=== PATIENT | male | born 1985 | race Caucasian/White ===

== ENCOUNTER 2024-03-07 15:31 | Emergency (ER) | payer OTHER ==
[2024-03-07 16:12] VITALS: RESP 18
[2024-03-07 16:12] LABS: Basophils # (A) 0.1 k/uL (0-0.2); Basophils % (A) 1 %; Eosinophils # (A) 0.3 k/uL (0-0.7); Eosinophils % (A) 2 %; HCT 43.2 % (39.0-53.0); HGB 13.5 gm/dL (13.0-17.5); Lymphocytes # (A) 1.9 k/uL (1.0-4.8); Lymphocytes % (A) 16 %; MCH 29.2 pg (25.0-35.0); MCHC 31.3 g/dL (31.0-37.0); MCV 93.1 fL (80.0-100.0); Mean Platelet Volume 7.3; Monocytes # (A) 0.6 k/uL (0-1.0); Monocytes % (A) 5 %; Neutrophils # (A) 8.8 k/uL (1.3-7.7); Neutrophils % (A) 74 %; Platelet Count 288 k/uL (150-450); RBC 4.63 m/uL (4.30-5.90); WBC 11.9 k/uL (3.8-10.6)
[2024-03-07] MEDS: IPRATROPIUM-ALBUTEROL 3 ML NEB INHALATION STA (16:15)
--- NOTE | 2024-03-07 16:20 | XR ---
EXAMINATION TYPE: XR chest 2V DATE OF EXAM: 03/07/2024 COMPARISON: NONE HISTORY: Cough TECHNIQUE: Frontal and lateral views of the chest are obtained. FINDINGS: There is no focal air space opacity, pleural effusion, or pneumothorax seen. The cardiac silhouette size is within normal limits. The osseous structures are intact. IMPRESSION: No acute cardiopulmonary process.
[2024-03-07 16:24] LABS: African American GFR (CKD) >90 (>60 ml/min/1.73 sqM); Anion Gap 5 mmol/L; Blood Urea Nitrogen 17 mg/dL (9-20); Calcium 9.3 mg/dL (8.4-10.2); Carbon Dioxide 31 mmol/L (22-30); Chloride 103 mmol/L (98-107); Glucose 83 mg/dL (74-99); Non-African American GFR(CKD) >90 (>60 ml/min/1.73 sqM); Potassium 4.8 mmol/L (3.5-5.1); Sodium 139 mmol/L (137-145)
--- NOTE | 2024-03-07 16:26 | ED ---
General Adult HPI - General Chief complaint: Upper Respiratory Infection Stated complaint: rib pain Time Seen by Provider: 03/07/24 15:33 Source: patient, EMS, RN notes reviewed, old records reviewed Mode of arrival: EMS Limitations: no limitations - History of Present Illness Initial comments: Patient is a 38-year-old male who was sent from [facility] for evaluation for upper respiratory illness. Patient for the last 2 days has had a productive cough with darker sputum. Has some left lower lateral rib pain worse with coughing. Does have a smoking history. Has a history of cocaine use as well. Denies any recent drug use in the last few days. Denies any fevers or chills. Does endorse congestion. No nausea or vomiting or diarrhea. Presents for further evaluation at this time. - Related Data Previous Rx's Medication Instructions Recorded Albuterol Inhaler [Ventolin Hfa 2 puff INHALATION QID PRN #8 gm 03/07/24 Inhaler] Azithromycin [Zithromax] 250 mg PO DAILY 4 Days #4 tab 03/07/24 Ibuprofen [Motrin] 400 mg PO Q6HR PRN #56 tab 03/07/24 predniSONE [Deltasone] 40 mg PO DAILY 5 Days #10 tab 03/07/24 Allergies Allergy/AdvReac Type Severity Reaction Status Date / Time No Known Allergies Allergy Verified 03/07/24 15:46 Review of Systems ROS Statement: Those systems with pertinent positive or pertinent negative responses have been documented in the HPI. Review of Systems: CONST: Denies fever EYES: Denies blurry vision ENT: Endorses congestion C/V: Denies Chest pain RESP: Endorses cough GI: Denies abdominal pain : Denies dysuria SKIN: Denies rash. MSK: Endorses rib pain NEURO: Denies headache ROS Other: All systems not noted in ROS Statement are negative. Past Medical History History of Any Multi-Drug Resistant Organisms: MRSA Past Surgical History: Orthopedic Surgery Additional Past Surgical History / Comment(s): rt rotator cuff repair Past Psychological History: ADD/ADHD, Anxiety Smoking Status: Current every day smoker Past Alcohol Use History: None Reported Past Drug Use History: Cocaine, Heroin General Exam - General Exam Comments Initial Comments: General: Appears in no acute distress. HEAD: Normal with no signs of head trauma. EYES: PERRLA, EOMI, conjunctiva normal, no discharge. ENT: Hearing grossly intact, normal oropharynx. RESPIRATORY: Mild end expiratory wheezing with mild coarse breath sounds. No hypoxia. No increased work of breathing. C/V: Regular rate and rhythm. S1 and S2 auscultated, no edema, peripheral pulses 2+ and intact throughout ABD: Abd is soft, nontender, nondistended EXT: Normal range of motion, no obvious deformity. Patient does have some left inferior most rib tenderness to palpation in the mid axillary line. SKIN: No rashes or lesions observed on exposed skin. NEURO: Alert and oriented x 4 Limitations: no limitations Course Vital Signs 03/07/24 03/07/24 03/07/24 15:32 16:17 16:24 Temperature 98.3 F Pulse Rate 88 88 90 Respiratory 18 Rate Blood Pressure 142/84 O2 Sat by Pulse 99 Oximetry 03/07/24 18:24 Temperature 97.9 F Pulse Rate 82 Respiratory 18 Rate Blood Pressure 155/78 O2 Sat by Pulse 98 Oximetry Medical Decision Making - Medical Decision Making Was pt. sent in by a medical professional or institution (, PA, MACHINE ASSEMBLER, urgent care, hospital, or care home...) When possible be specific @ -No Did you speak to anyone other than the patient for history (EMS, parent, family, police, friend...)? What history was obtained from this source @ -No Did you review nursing and triage notes (agree or disagree)? Why? @ -I reviewed and agree with nursing and triage notes Were old charts reviewed (outside hosp., previous admission, EMS record, old EKG, old radiological studies, urgent care reports/EKG's, care home records)? Report findings @ -Old charts reviewed Differential Diagnosis (chest pain, altered mental status, abdominal pain women, abdominal pain men, vaginal bleeding, weakness, fever, dyspnea, syncope, headache, dizziness, GI bleed, back pain, seizure, CVA, palpatations, mental health, musculoskeletal)? @ -COVID, flu, RSV, pneumonia. This list is not all inclusive. EKG interpreted by me (3pts min.). @ -As above X-rays interpreted by me (1pt min.). @ -Chest x-ray reveals no obvious acute cardiopulmonary process. CT interpreted by me (1pt min.). @ -None done U/S interpreted by me (1pt. min.). @ -None done What testing was considered but not performed or refused? (CT, X-rays, U/S, labs)? Why? @ -None What meds were considered but not given or refused? Why? @ -None Did you discuss the management of the patient with other professionals (professionals i.e. , PA, MACHINE ASSEMBLER, lab, RT, psych nurse, social media project manager, steel fabricator, teacher, dairy quality assurance officer, shelter case manager)? Give summary @ -No Was smoking cessation discussed for >3mins.? @ -No Was critical care preformed (if so, how long)? @ -No Were there social determinants of health that impacted care today? How? (Homelessness, low income, unemployed, alcoholism, drug addiction, transportat ion, low edu. Level, literacy, decrease access to med. care, longterm, rehab)? @ -No Was there de-escalation of care discussed even if they declined (Discuss DNR or withdrawal of care, Hospice)? DNR status @ -No What co-morbidities impacted this encounter? (DM, HTN, Smoking, COPD, CAD, Cancer, CVA, ARF, Chemo, Hep., AIDS, mental health diagnosis, sleep apnea, morbid obesity)? @ -Tobacco use, polysubstance use Was patient admitted / discharged? Hospital course, mention meds given and route, prescriptions, significant lab abnormalities, going to OR and other pertinent info. @ -Patient presents from rehab facility for cough, congestion, likely mild COPD exacerbation. Patient also has suspected muscle strain of the left-sided ribs. We will obtain screening EKG as well as infectious labs and basic labs as well as chest x-ray. Patient was in agreement this plan. Vital signs within acceptable limits. Patient will be given IV steroids, breathing treatment, Toradol as well as a lidocaine patch. EKG shows no signs of acute ischemia. X-ray reveals no evidence of acute cardiopulmonary process.Patient's laboratory studies unremarkable. Viral swabs negative. On reevaluation, patient is feeling improved. Discussed his results and patient will be treated for likely COPD as well as bronchitis. He was in agreement this plan. He will be given a dose of azithromycin prior to discharge. I will provide the patient with a prescription for ibuprofen, albuterol inhaler, azithromycin, prednisone. I instructed the patient to follow up with their PCP in the next 1-3 days. I explained that the patient should return to the emergency department if they experience any worsening symptoms. Strict return precautions were discussed with the patient. The patient expressed understanding of these instructions. I answered all questions that the patient had. The patient was discharged home in good condition with their prescriptions and follow up information. Undiagnosed new problem with uncertain prognosis? @ -No Drug Therapy requiring intensive monitoring for toxicity (Heparin, Nitro, Ins ulin, Cardizem)? @ -No Were any procedures done? @ -No Diagnosis/symptom? @ -Tracheobronchitis Acute, or Chronic, or Acute on Chronic? @ -Acute Uncomplicated (without systemic symptoms) or Complicated (systemic symptoms)? @ -Complicated Side effects of treatment? @ -None Exacerbation, Progression, or Severe Exacerbation] @ -No Poses a threat to life or bodily function? @ -Unlikely - Lab Data Result diagrams: 03/07/24 15:57 03/07/24 15:57 Lab Results 03/07/24 03/07/24 03/07/24 Range/Units 15:57 15:57 15:57 WBC 11.9 H (3.8-10.6) k/uL RBC 4.63 (4.30-5.90) m/uL Hgb 13.5 (13.0-17.5) gm/dL Hct 43.2 (39.0-53.0) % MCV 93.1 (80.0-100.0) fL MCH 29.2 (25.0-35.0) pg MCHC 31.3 (31.0-37.0) g/dL RDW 13.0 (11.5-15.5) % Plt Count 288 (150-450) k/uL MPV 7.3 Neutrophils % 74 % Lymphocytes % 16 % Monocytes % 5 % Eosinophils % 2 % Basophils % 1 % Neutrophils # 8.8 H (1.3-7.7) k/uL Lymphocytes # 1.9 (1.0-4.8) k/uL Monocytes # 0.6 (0-1.0) k/uL Eosinophils # 0.3 (0-0.7) k/uL Basophils # 0.1 (0-0.2) k/uL Sodium 139 (137-145) mmol/L Potassium 4.8 (3.5-5.1) mmol/L Chloride 103 (98-107) mmol/L Carbon Dioxide 31 H (22-30) mmol/L Anion Gap 5 mmol/L BUN 17 (9-20) mg/dL Creatinine 0.66 (0.66-1.25) mg/dL Est GFR (CKD-EPI)AfAm >90 (>60 ml/min/1.73 sqM) Est GFR (CKD-EPI)NonAf >90 (>60 ml/min/1.73 sqM) Glucose 83 (74-99) mg/dL Calcium 9.3 (8.4-10.2) mg/dL Influenza Type A (PCR) Not Detected (Not Detectd) Influenza Type B (PCR) Not Detected (Not Detectd) RSV (PCR) Not Detected (Not Detectd) SARS-CoV-2 (PCR) Not Detected (Not Detectd) - EKG Data -: EKG Interpreted by Me EKG Comments: 12-lead Electrocardiogram Interpretation Note EKG was reviewed and interpreted by myself. 12-lead ECG performed at 1543 is interpreted by me as revealing normal sinus rhythm at a rate of 74 beats per m inute. [place] is normal. [place] interval is 143 ms, QRS duration is 86 ms, QTc is 406 ms.. There were no ST or T wave abnormalities to suggest myocardial ischemia or injury. R wave progression across the precordium was satisfactory. By my interpretation this EKG is non-diagnostic for acute ischemia. Disposition Clinical Impression: Tracheobronchitis Disposition: HOME SELF-CARE Condition: Good Instructions (If sedation given, give patient instructions): Acute Bronchitis (ED) Prescriptions: predniSONE [Deltasone] 40 mg PO DAILY 5 Days #10 tab Ibuprofen [Motrin] 400 mg PO Q6HR PRN #56 tab PRN Reason: Pain Albuterol Inhaler [Ventolin Hfa Inhaler] 2 puff INHALATION QID PRN #8 gm PRN Reason: Dyspnea Azithromycin [Zithromax] 250 mg PO DAILY 4 Days #4 tab Is patient prescribed a controlled substance at d/c from ED?: No Referrals: None,Stated [Primary Care Provider] - 1-2 days Forms: Area PCPs Time of Disposition: 17:11
[2024-03-07] MEDS: KETOROLAC 15 MG/ML 1 ML VIAL IVP STA (16:56)
[2024-03-07] MEDS: methylPREDNISolone SOD SUCCI 125 MG/2 ML VIAL IV STA (16:57)
[2024-03-07] MEDS: LIDOCAINE 4% PATCH TOPICAL ONE (16:57)
[2024-03-07] MEDS: AZITHROMYCIN 500 MG TAB PO STA (17:54)
[2024-03-07 18:49] VITALS: BP 155/78; PULSE 82; TEMP 97.9
== END 2024-03-07 18:29 | disposition home or self-care (01) ==
LOC: EC 15:31
DX: J40 Bronchitis, not specified as acute or chronic (principal); F19.90 Other psychoactive substance use, unspecified, uncomplicated; F17.200 Nicotine dependence, unspecified, uncomplicated
CPT/HCPCS: 36415; 94640; 93005; 80048; 85025; 87636; 71046; 99285; 96374; 96375; J1885; J2919